=== PATIENT | male | born 1985 | race Caucasian/White ===

== ENCOUNTER 2020-09-03 11:09 | Emergency (ER) | payer OTHER ==
[~2020-09-03] VITALS: Ht 188 cm; Wt 113.4 kg
[2020-09-03] MEDS ORDERED: SERTRALINE HCL100 MG PO (11:53)
[2020-09-03 12:46] VITALS: BP 159/99
--- NOTE | 2020-09-03 15:20 | EKG ---
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 : 1985 Requested By: Larry Seay Order Number: [id number] Guillermina MD: Mehul Park Measurements Intervals [place] Rate: 70 P: 53 IL: 147 QRS: 68 QRSD: 104 T: 16 QT: 401 QTc: 433 Interpretive Statements Sinus rhythm Probable left atrial enlargement RSR' in V1 or V2, right VCD or RVH No previous ECG available for comparison Electronically Signed On 09-03-2020 15:20:20 CDT by Mehul Park [email or web address] <ELECTRONICALLY SIGNED> By: Mehul Park MD, [facility] 09/03/20 1520 1159 1159 Mehul Park MD, [facility] /EPI
== END 2020-09-03 12:52 | disposition left against medical advice (07) ==
LOC: M.ERS 11:09
DX: Z53.21 Procedure and treatment not carried out due to patient leaving prior to being seen by health care provider (principal)